=== PATIENT | female | born 1995 | race Caucasian/White ===

== ENCOUNTER 2016-10-15 00:55 | Emergency (ER) | payer OTHER ==
--- NOTE | ~2016-10-15 | CR142 ---
[facility] [place] A Service of [facility] RADIOLOGY TEXT RESULTS PATIENT: CHRISTOPHER NAIK LOCATION: SED : 95 UNIT #: [id number] AGE: [address]: Donis Dowd MD SEX: F ORDER DR: [id number] E MR#: [id number] Acc #: [id number] NAME: CHRISTOPHER NAIK : 1995 SEX: F STUDY DATE/TIME: 10/15/2016 1:06 UNIT: SED ROOM: STUDY DESCRIPTION: CR Hand Min 3 Views Rt Attending Physician: Donis Dowd M.D. Ordering Physician: Donis Dowd M.D. Primary Care Physician: Nikko Penn Jr., A.P.R.N. MEDICAL IMAGING REPORT This report is preliminary unless electronic signature is present. EXAM 3 views of the right hand, 10/15/2016 at 01:06 HISTORY Right hand pain since yesterday after slamming hand in a freezer at work. COMPARISON 3 views of the right hand, 01/28/2015 FINDINGS AP, lateral, and oblique projections of the hand show good mineralization with normal carpal, metacarpal, and phalangeal anatomy without indication of fracture, dislocation, or soft tissue radiopaque foreign body. IMPRESSION Normal right hand. Dictated by... Carrie Huynh M.D. THIS IS AN ELECTRONICALLY VERIFIED REPORT Carrie Huynh M.D. at 10/16/2016 12:11 AM Jennifer TD: 10/15/2016 12:03 JOB #: [id number] MEDICAL IMAGING REPORT
[~2016-10-15 00:55] MED LIST: ANAPROX DS550 M1 PO; BACTRIM DS TABL1 TA1 PO; BACTRIM DS TABL1 TA2 PO; BACTROBAN22 GM TOP; BENZONATATE PO; CLOTRIMAZOLE15 GM TP; DEPO-PROVE150 MG/1 M; DEPO-PROVER150 MG/ML INJ; DEPO-PROVER400 MG/ML; DICYCLOMINE HCL20 MG PO; DIFLUCAN PO; FAMVIR250 MG; FLEXERIL10 MG PO; FLONASE; IBUPROFEN100 MG PO; IMITREX50 MG PO; INDERAL20 MG PO; KEFLEX500 M2 PO; KEFLEX500 MG PO; KEPPRA500 M2 PO; KEPPRA500 MG PO; LEVSIN PO; LEVSIN0.125 M2; LORTAB 10-5001 EACH PO; LORTAB 5-325 M1 EACH PO; MACROBID100 M1 PO; MAGIC MOUTHWASH; MECLIZINE HCL25 M2 PO; MEDROL DOSEPAK4 MG PO; MOBIC15 MG; MOTRIN600 MG PO; NEURONTIN; PAXIL PO; PHENERGAN12.5 MG/SU RC; PHENERGAN25 M1 PO; PHENERGAN25 MG; PHENERGAN25 MG PO; PREDNISONE PO; PRILOSEC40 MG PO; PROMETH-CODEIN 65 ML; PROPRANOLOL HCL10 MG PO; PYRIDIUM100 MG PO; REQUIP1 MG PO; ROBITUSSIN CF PO; ROBITUSSIN-PE1 ML PO; SUDAFED 30 MG PO; TAMIFLU75 M1 PO; TOPAMAX PO; TOPAMAX25 MG PO; TRAMADOL HCL50 M2 PO; TYLENOL #3 PO; VALTREX PO; VISTARIL PO; VOLTAREN50 MG PO; VOLTAREN75 MG PO; ZOFRAN ODT4 MG; ZOFRAN ODT4 MG PO; ZOFRAN ODT4 MG/UDTAB PO; ZOFRANODT PO; ZOVIRAX200 M1; [UNRECOGNIZED DRUG - OTHER]; [UNRECOGNIZED DRUG - OTHER]; [UNRECOGNIZED DRUG - OTHER] PO; [UNRECOGNIZED DRUG - REMARK]
== END 2016-10-15 01:46 | disposition home or self-care (01) ==
LOC: SED 00:55
DX: S60.221A Contusion of right hand, initial encounter (principal); W23.0XXA Caught, crushed, jammed, or pinched between moving objects, initial encounter; Y92.69 Other specified industrial and construction area as the place of occurrence of the external cause
CPT/HCPCS: 73130; 99283

== ENCOUNTER 2016-10-16 10:20 | Emergency (ER) | payer OTHER | END 2016-10-16 10:30 | disposition home or self-care (01) | LOC: CFTX 10:20 | DX: H66.92 Otitis media, unspecified, left ear (principal) | CPT/HCPCS: 99282 ==

== ENCOUNTER 2016-11-27 13:08 | Emergency (ER) | payer OTHER | END 2016-11-27 13:09 | disposition home or self-care (01) | LOC: CFTX 13:08 | DX: R21 Rash and other nonspecific skin eruption (principal); G40.909 Epilepsy, unspecified, not intractable, without status epilepticus | CPT/HCPCS: 99283 ==

== ENCOUNTER → 2017-01-19 | Outpatient (CLI) | payer OTHER ==
[~2017-01-19] MED LIST changes: +ACYCLOVIR PO; +B/P MED; +ZOFRAN PO; +ZOVIRAX200 MG
--- NOTE | ~2017-01-19 | HM ---
Unit #: [id number] #: [id number] Patient: CHRISTOPHER NAIK [id number] [place], [place] [address] [id number] O MR#: [id number] NAME: CHRISTOPHER NAIK : 1995 SEX: F STUDY DATE/TIME: 01/22/2017 UNIT: [facility] ROOM: STUDY DESCRIPTION: Holter monitor Attending Physician: Nikko Penn Jr., Helen Referring Physician: Nikko Penn Jr., A.P.R.N. Primary Care Physician: Nikko Penn Jr., A.P.R.N. CARDIOLOGY REPORT EXAM Twenty-four hour Holter report. DATE APPLIED January 19, 2017. DATE SCANNED January 22, 2017. ORDERED BY Nikko Penn Jr., A.P.R.N. READ BY [facility] Center[facility] M.D. REASON FOR THE STUDY Heart fluttering. FINDINGS Underlying rhythm is normal sinus rhythm with an average heart rate of 89 beats per minute, minimum heart rate of 52 beats per minute, and a maximum heart rate of 161 beats per minute. The minimum heart rate of 52 beats per minute is noted at 7:33 p.m. The maximum heart rate of 161 beats per minute is noted at 9:29 a.m. The patient had a 1.5 second pause noted at 10:33 p.m. The patient had 17 single multifocal premature ventricular complexes noted. The patient had 15 single premature atrial complexes noted. The patient recorded several symptoms of chest discomfort and palpitations, all of which either correlated with normal sinus rhythm or sinus tachycardia. CONCLUSION 1. Underlying rhythm is normal sinus rhythm with an average heart rate of 89 beats per minute, minimum heart rate of 52 beats per minute and a maximum heart rate of 161 beats per minute. 2. No sustained atrial or ventricular arrhythmias noted. 3. No significant pauses noted. 4. Rare single premature atrial complexes and single premature ventricular complex noted. 5. The patient recorded symptoms of chest discomfort, palpitations and shortness of breath, all of which correlated with either normal sinus rhythm or sinus tachycardia. Unit #: [id number] #: [id number] Patient: CHRISTOPHER NAIK Dictated by... [employer] TD: 01/23/2017 07:53 JOB #: [id number] CARDIOLOGY REPORT Page 1 of 1 X Adry Silver MD <ELECTRONICALLY SIGNED> 02/20/17 1429 HOLTER MONITOR REPORT
== END | disposition home or self-care (01) ==
LOC: CECH 12:01
DX: I49.8 Other specified cardiac arrhythmias (principal); I49.3 Ventricular premature depolarization; R07.89 Other chest pain; R00.2 Palpitations; R06.02 Shortness of breath
CPT/HCPCS: 93225; 93226; 93306

== ENCOUNTER 2017-03-18 | Emergency (ER) | payer OTHER ==
[~2017-03-18] VITALS: Ht 172.7 cm; Wt 94.1 kg
[~2017-03-18] MED LIST changes: -ACYCLOVIR PO; -B/P MED; -ZOFRAN PO; -ZOVIRAX200 MG
[2017-03-18] MEDS ORDERED: ACYCLOVIR PO (00:10)
[2017-03-18 00:44] LABS: URINE SOURCE CLEAN CATCH
[2017-03-18 00:45] LABS: BASOPHIL% 0.6 % (0-2.5); DIFF IND NO; EOSINOPHIL% 0.6 % (0.0-7.0); HEMATOCRIT 42.6 % (35.0-45.0); HEMOGLOBIN 14.1 gm/dL (12.0-16.0); LYMPHOCYTE# 1.3 X10e3 (1.0-3.5); LYMPHOCYTE% 18.9 % (17.0-45.0); MEAN CELL VOLUME 86.4 FL (83-96); MEAN CORPUSCULAR HEMOGLOBIN 28.6 PG (28-34); MEAN CORPUSCULAR HGB CONC 33.1 g/dL (30-36); MEAN PLATELET VOLUME 8.9 FL (6.5-11.5); MONOCYTE# 0.4 X10e3 (0-1.0); MONOCYTE% 5.8 % (3.0-12.0); NEUTROPHIL# 5.1 X10e3 (1.5-7.1); NEUTROPHIL% 74.1 % (40-75); PLATELET COUNT 191 X10e3 (140-420); RED BLOOD COUNT 4.93 X10e (3.90-5.30); RED CELL DISTRIBUTION WIDTH 12.9 % (11.0-15.5); WHITE BLOOD COUNT 6.9 X10e3 (4.0-10.5)
[2017-03-18 00:46] LABS: URINE APPEARANCE CLEAR; URINE BLOOD 1+ (NEG); URINE COLOR YELLOW; URINE GLUCOSE NEG (NORM); URINE LEUKOCYTE ESTERASE TRACE (NEG); URINE NITRATE NEG (NEG); URINE PH 6.5 (5-8); URINE PROTEIN 1+ (NEG); URINE SPECIFIC GRAVITY 1.025 (1.003-1.035)
[2017-03-18 00:50] LABS: MICRO INDICATED? YES; URINE BILIRUBIN NEG (NEG); URINE KETONE 3+ (NEG)
[2017-03-18 00:52] LABS: CULTURE INDICATED? YES; URINE BACTERIA 1+ (NEG); URINE MUCUS PRESENT; URINE SQUAMOUS EPITHELIAL CELL OCCAS /[HPF]; URINE TRANSITIONAL EPI CELLS FEW /[HPF]
[2017-03-18 01:04] LABS: ALBUMIN SERUM 4.8 g/dL (3.5-5.0); ALKALINE PHOSPHATASE 72 U/L (32-92); ALT (SGPT) 15 U/L (10-40); AST (SGOT) 20 U/L (10-42); BILIRUBIN, DIRECT <0.1 mg/dL (0.0-0.2); BILIRUBIN,INDIRECT 0.8 mg/dL (0.0-0.9); BILIRUBIN,TOTAL 0.9 mg/dL (0.2-2.0); BLOOD UREA NITROGEN 10 mg/dL (9-23); CALCIUM SERUM 9.5 mg/dL (8.4-10.2); CARBON DIOXIDE 27 mmol/L (22-31); CHLORIDE 103 mmol/L (100-111); GLOM FILT RATE Estimated 80.5 mL/min (>60); GLUCOSE FASTING 96 mg/dL (70-110); LIPASE 24 U/L (22-51); POTASSIUM 3.9 mmol/L (3.5-5.1); SODIUM 141 mmol/L (135-145)
[2017-03-18] MEDS ORDERED: ZOFRAN PO (02:19)
== END 2017-03-18 02:24 | disposition home or self-care (01) ==
LOC: SED
PROVIDERS: Emergency Medicine
DX: E86.0 Dehydration (principal); R10.9 Unspecified abdominal pain; R19.7 Diarrhea, unspecified
CPT/HCPCS: 36415; 80048; 80076; 81003; 83690; 84703; 85025; 87086; 96361; 96374; 96375; 99284; J2405; J2765

== ENCOUNTER 2017-04-08 09:56 | Emergency (ER) | payer OTHER ==
--- NOTE | ~2017-04-08 | EKG ---
PATIENT: CHRISTOPHER NAIK UNIT #: [id number] Ventricular Rate: 74 BPM Atrial Rate: 74 BPM P-R Interval: 158 ms QRS Duration: 76 ms Q-T Interval: 398 ms QTC Calculation(Bezet): 441 ms P [place]: 46 degrees Calculated R [place]: 21 degrees Calculated T [place]: -2 degrees Diagnosis Line: Normal sinus rhythm with sinus arrhythmia Diagnosis Line: Nonspecific T wave abnormality Diagnosis Line: Abnormal ECG Diagnosis Line: When compared with ECG of 28-APR-2015 03:36, Diagnosis Line: No significant change was found Diagnosis Line: Confirmed by GINI DUMONT MD ([id number]) on Diagnosis Line: 04/09/2017 10:54:59 AM INTERPRETING MD: JULIA MORILLO
[~2017-04-08 09:56] MED LIST changes: +ACYCLOVIR PO; +ZOFRAN PO
[2017-04-08] MEDS ORDERED: ZOVIRAX200 MG (10:04)
[2017-04-08] MEDS ORDERED: B/P MED (10:05)
[2017-04-08 10:53] LABS: URINE SOURCE CLEAN CATCH
[2017-04-08 10:54] LABS: URINE APPEARANCE CLOUDY; URINE BLOOD NEG (NEG); URINE COLOR AMBER; URINE GLUCOSE NEG (NORM); URINE KETONE TRACE (NEG); URINE LEUKOCYTE ESTERASE 1+ (NEG); URINE NITRATE NEG (NEG); URINE PROTEIN 2+ (NEG); URINE SPECIFIC GRAVITY >=1.030 (1.003-1.035)
[2017-04-08 10:57] LABS: MICRO INDICATED? YES; URINE BILIRUBIN POS (NEG)
[2017-04-08 10:58] LABS: CULTURE INDICATED? YES; URINE BACTERIA 3+ (NEG); URINE HYALINE CAST 0-2 /[HPF]; URINE RBC 0-2 /[HPF] (0-2); URINE SQUAMOUS EPITHELIAL CELL MANY /[HPF]; URINE TRANSITIONAL EPI CELLS FEW /[HPF]
[2017-04-08 10:59] LABS: URINE AMORPHOUS SEDIMENT AMORP URATES; URINE MUCUS PRESENT
[2017-04-08 11:08] LABS: AMPHETAMINE NEG (NEG); BARBITURATES NEG (NEG); BENZODIAZEPINES NEG (NEG); COCAINE NEG (NEG); MARIJUANA POS (NEG); OPIATES NEG (NEG); TRICYCLIC ANTIDEPRESSANTS NEG (NEG); U METHADONE NEG (NEG)
== END 2017-04-08 11:25 | disposition home or self-care (01) ==
LOC: SED 09:56
PROVIDERS: Emergency Medicine
DX: R55 Syncope and collapse (principal); R11.0 Nausea; M19.90 Unspecified osteoarthritis, unspecified site
CPT/HCPCS: 80307; 81003; 82947; 84703; 87086; 93005; 99284